=== PATIENT | female | born 1995 | race African-American/Black ===

== ENCOUNTER 2022-08-09 08:34 | Emergency (ER) | payer MEDICAID ==
[~2022-08-09] VITALS: Ht 160 cm; Wt 60.0 kg
[2022-08-09 12:52] VITALS: BP 118/72
== END 2022-08-09 13:42 | disposition home or self-care (01) ==
LOC: ER 08:34
DX: T19.2XXA Foreign body in vulva and vagina, initial encounter (principal); X58.XXXA Exposure to other specified factors, initial encounter
CPT/HCPCS: 99284